=== PATIENT | female | born 1995 | race Caucasian/White ===

== ENCOUNTER 2025-04-20 12:16 | Emergency (ER) | payer OTHER, SELFPAY ==
--- NOTE | ~2025-04-20 | CT_ITS ---
CLINICAL HISTORY: STRINGER, no prior severe HAs, pls eval for aneurysm CT angiography head with contrast. 3D Postprocessing. Comparison: CT/SR - CT HEAD WITHOUT IV CONTRAST - 04/20/25 14:25 EDT Findings: Intracranial arteries are patent. No aneurysm, dissection, hemodynamically significant stenoses, or occlusion. No abnormal intracranial enhancement. No intra-axial mass, midline shift, hydrocephalus, or acute hemorrhage. No skull fracture. IMPRESSION: Patent head CTA. no evidence of intracranial aneurysm. This document has been electronically signed by: Kashmir Becker MD on 04/20/2025 21:08:05
--- NOTE | ~2025-04-20 | CT_ITS ---
EXAMINATION: CT HEAD WITHOUT CONTRAST CLINICAL INFORMATION: Atypical migraine COMPARISON: None available. TECHNIQUE: Contiguous axial imaging was performed from the skull base to vertex without intravenous administration of contrast. This CT examination was performed using dose optimization techniques as appropriate, variously including the following: *Automated exposure control *Adjustment of mA and/or kV according to patient size (this includes techniques or standardized protocols for targeted exams where dose is matched to indication/reason for exam; i.e. extremities or head) *Use of iterative reconstruction technique DLP: 716 mGY*cm FINDINGS: There is no acute ischemic change. There is no intracranial hemorrhage. There is no mass-effect or midline shift. Basal cisterns and ventricles are within normal limits for age/cerebral volume. Orbits are symmetrical and unremarkable. Paranasal sinuses and mastoid air cells are pneumatized. There are no bony abnormalities. There is mild lobular thickening of the frontal bone. CT/CT head/brain wo IV con IMPRESSION: No acute intracranial abnormality. Electronically signed by: Gerber Morse MD 04/20/2025 02:54 PM EDT
[2025-04-20 12:20] VITALS: BP 125/75; PULSE 114; RESP 18; TEMP 36.1; O2SAT 98; BMI 25.0
--- NOTE | 2025-04-20 12:23 | ED_ITS ---
HPI - Headache General Chief Complaint: Headache Stated Complaint: Vomiting Time Seen by Provider: 04/20/25 18:35 History of Present Illness ED Provider: Cali WYLIE Narrative: The patient is a 29-year-old female who has a history of what she calls migraine headaches. She says that these are headaches that she usually experiences behind her right eye and for which she takes sumatriptan. She says that this morning she woke up at around 05:30 and very soon after she woke up she developed a headache that was different from her typical headaches. It was a generalized headache and was associated with nausea. The headache became very severe after about half an hour from onset. She had associated nausea and vomited multiple times and ultimately her father drove her to the emergency room. She believes that the headache started at around 06:00 AM. No fever, sweats, chills. No neck stiffness. She says that her vision looked ?shaky. This was a generalized phenomenon, not a localized visual phenomenon. At 1 point she felt that her arms were stiff and numb. While waiting to be seen her symptoms have subsided somewhat. At this point her headache as a 4 to 5/10. It was much more severe this morning. Related Data Allergies Allergy/AdvReac Type Severity Reaction Status Date / Time No Known Allergies Allergy Verified 04/20/25 12:21 Review of Systems 2 Review of Systems: Yes all other systems are reviewed and are negative [facility] Social History Social History Smoked in Last 30 Days: No Use of substances other than those prescribed or required for medical reasons: No Advance Directives: No Advance Directives Information Provided: Yes Do you have a plan to hurt others: No Plan Physical Exam 2 Vital Signs: Vital Signs: Last Vital Signs Temp 98.0 F 04/20/25 22:19 Pulse 94 04/20/25 22:19 Resp 20 04/20/25 22:19 BP 103/67 04/20/25 22:19 Pulse Ox 98 04/20/25 22:19 O2 Del Method Room Air 04/20/25 22:19 BMI result Body Mass Index 25.0 Const: Other: The patient looks as though she is an ordinarily healthy 29-year-old. She is awake and alert. She does not look obviously ill or unwell. Orientation/consciousness: patient oriented x3 HEENT: Other: The face is symmetrical. ?Mucous membranes moist. Eyes: Other: The patient has a large pupils bilaterally. Pupils are reactive to light. Pupils are equal and responses are equal. Extraocular movements are intact. Funduscopic exam is unremarkable. Neck: Other: The patient has an entirely supple neck. Neck: Yes no meningeal signs Resp: Effort & Inspection: normal respiratory effort Auscultation: clear to auscultation bilaterally Cardio: Rate: regular rate Rhythm: regular rhythm Heart sounds: S1 normal heart sound present and S2 normal heart sound present GI: Other: Abdomen is soft and nontender Skin: Other: Skin is dry and unremarkable Neuro: General: patient oriented x3, gait normal, tone normal, moves all extremities, no meningeal signs, no focal motor deficits and CN's II-XI intact bilaterally Extrem: Other: No peripheral edema Course Course Course Narrative: This is a Rapid Medical Examination (RME) performed by Jada Burdick PA-C in triage. Full HPI, ROS, assessment and treatment plan per primary provider in the Main ED. Hx: 29 yo F hx of migraines here for evaluation of diffuse headache on waking following by nausea and multiple episodes of vomiting. Her migraines are typically located behind her right eye however this 1 was diffuse. She did take a sumatriptan which helped the migraine however she cannot stop vomiting. No vision changes. No head strikes. no known sick contacts Plan: labs, CT Medications Administered Discontinued Medications Generic Name Dose Route Start Last Admin Trade Name Freq PRN Reason Stop Dose Admin Diphenhydramine HCl 25 mg 04/20/25 18:54 04/20/25 19:07 Diphenhydramine Hcl 50 Mg/Ml Vial IVPUSH 04/20/25 18:55 25 mg ONCE ONE Administration Sodium Chloride 1,000 mls @ 999 mls/hr 04/20/25 19:00 04/20/25 20:07 Ns IV 04/20/25 20:00 Infused .Q1H1M ESHA Infusion Iohexol 100 ml 04/20/25 19:46 04/20/25 19:46 Iohexol 350 Mg/Ml 100 Ml Infus..Btl IV 04/20/25 19:47 70 ml ONCE ONE Administration Metoclopramide HCl 10 mg 04/20/25 18:54 04/20/25 19:09 Metoclopramide Hcl 10 Mg/2 Ml Vial IVPUSH 04/20/25 18:55 10 mg ONCE ONE Administration Ondansetron HCl 4 mg 04/20/25 12:23 04/20/25 12:25 Ondansetron Odt 4 Mg Tab.Nikki PAEZ 04/20/25 12:24 4 mg ONCE ONE Administration Medical Decision Making Medical Decision Making [facility] Narrative: The patient is a 29-year-old female who presents with the acute headache that is different than her usual headache syndrome. She developed a headache this morning at around 06:00 that was more severe than her usual headaches and of a different character and was associated with nausea and multiple episodes of vomiting. By the time I saw the patient her symptoms were subsiding. She has a supple neck. A noncontrast CT scan of the brain has been ordered at triage. This was done at about 14 30, approximately 8-1/2 hours after the onset of the headache. The noncontrast head CT was negative. I explained to the patient that on the basis of her negative head CT, her supple neck, the lack of hypertension, in the fact that her symptoms were improving fairly rapidly spontaneously that my suspicion for a subarachnoid hemorrhage was low but that since the noncontrast head CT has been done after 6 hours from the onset of the headache that I could not definitively conclude that she did not have a sentinel bleed. Clinically I do not have any suspicion for meningitis. I explained to the patient that in order to be certain that today's headache might not represent a sentinel bleed of an intracranial aneurysm that we would either need to do a spinal tap or an angiogram of the brain. I also explained that my suspicion was low and we could potentially simply treat her without doing additional testing. The patient was interested in being more definitive and wished to proceed with an angiogram. Therefore the patient had an angiogram of the brain. She was also treated with IV metoclopramide and diphenhydramine and IV fluids. Her residual headache resolved with this treatment. The angiogram shows no sign of aneurysm. The patient was reassured. This may be some different form of migraine, different from her usual migraines. Since she looks quite well and was feeling significantly better and has an essentially negative workup she will be discharged to follow up with her PCP to discuss this further. Lab Data 04/20/25 13:14 04/20/25 13:14 Labs: Lab Results 04/20/25 04/20/25 Range/Units 13:14 17:52 WBC 11.3 H (4.8-10.8) X10*3/uL RBC 4.56 (4.20-5.50) X10*6/uL Hgb 14.0 (12.0-16.0) g/dl Hct 40.8 (37.0-47.0) % MCV 89.5 (80.0-98.0) fL MCH 30.7 (27.0-33.0) pg MCHC 34.3 (31.0-35.0) g/dl RDW 11.9 (11.0-16.0) % Plt Count 254 (160-400) X10*3/uL MPV 9.9 (9.4-12.3) fL Immature Gran % (Auto) 0.4 (0.0-0.4) % Neut % (Auto) 87.2 H (45-73) % Lymph % (Auto) 8.6 L (20-40) % [place] % (Auto) 3.5 (2-11) % Eos % (Auto) 0.0 (0-4) % Baso % (Auto) 0.3 (0-2) % Lymph # (Auto) 1.0 L (1.2-4.9) X10*3/uL [place] # (Auto) 0.4 (0.1-1.2) X10*3/uL Eos # (Auto) 0.0 (0.0-0.4) X10*3/uL Baso # (Auto) 0.0 (0.0-0.2) X10*3/uL Abs Immat Gran (auto) 0.05 H (0.00-0.03) X10*3/uL Absolute Neuts (auto) 9.9 H (2.0-8.3) x10*3/uL Absolute Nucleated RBC 0.000 (0.0-0.012) X10*3/uL Nucleated RBC % (auto) 0.0 (0.0-0.2) /100WBC Sodium 136 (135-145) mmol/L Potassium 4.8 (3.3-5.1) mmol/L Chloride 104 (96-108) mmol/L Carbon Dioxide 24 (22-29) mmol/L Anion Gap 13 (12-20) BUN 9 (9-16) mg/dL Creatinine 0.69 (0.5-1.4) mg/dL Estim Creat Clear Calc 113.6 Estimated GFR > 60 Random Glucose 109 (60-115) mg/dL Calcium 9.5 (8.4-10.2) mg/dL Magnesium 2.0 (1.6-2.6) mg/dL Total Bilirubin 0.4 (0.0-1.0) mg/dL AST 39 H (5-31) U/L ALT 23 (0-31) U/L Alkaline Phosphatase 60 (39-117) U/L Total Protein 7.6 (6.5-8.0) g/dL Albumin 4.7 (3.5-5.0) g/dL Lipase 12 (8-78) U/L Beta HCG, Quant < 2 mIU/mL Urine Color Yellow Urine Appearance Clear Urine pH 6.5 (5.0-9.0) Ur Specific [place] >= 1.030 H (1.005-1.025) Urine Protein Trace (Neg-Trace) mg/dL Urine Glucose (UA) Negative (Negative) mg/dL Urine Ketones >=160 (Negative) mg/dL Urine Blood Negative (Negative) Urine Nitrite Negative (Negative) Ur Leukocyte Esterase Negative (Negative) Influenza Type A (PCR) NEGATIVE (Negative) Influenza Type B (PCR) NEGATIVE (Negative) RSV RNA Qual (PCR) NEGATIVE (Negative) SARS-CoV-2 RNA (RT-PCR) NEGATIVE (Negative) Discharge Plan Discharge Clinical Impression: Headache Patient Disposition: Home, Self-Care Instructions: Acute Headache (ED) Additional Instructions: Your testing in the emergency room today is reassuring. Most importantly there was no evidence of an aneurysm as the source of your headache. It is possible that your headache today was an unusual migraine. Please plan on contacting your regular doctor tomorrow morning for a follow up appointment to discuss this episode further. I have sent a prescription for a medication for nausea which you may use if you have ongoing nausea. You may use pgtn-cri-[id number] ibuprofen and/or acetaminophen (Tylenol) as needed for any residual headache. Return to the emergency room if significantly worse. Referrals: Miryam Robins MD [Primary Care Provider, Endocrinology] Stand Alone Forms: Work/School Release Interventions: ED Discharge Assessment Last Done: 04/20/25 22:19 Discharge Date/Time: 04/20/25 22:20 Print Language: Citizen Of [place]
[2025-04-20 13:22] LABS: MANUAL DIFF FLAG NO
[2025-04-20 13:25] LABS: Hematocrit 40.8 % (37.0-47.0); Hemoglobin 14.0 g/dl (12.0-16.0); Imm Gran Abs Auto 0.05 X10*3/uL (0.00-0.03); Imm Gran Pct Auto 0.4 % (0.0-0.4); Lymphocytes Absolute Auto 1.0 X10*3/uL (1.2-4.9); Mean Corpuscular HGB Conc 34.3 g/dl (31.0-35.0); Mean Corpuscular Hemoglobin 30.7 pg (27.0-33.0); Mean Corpuscular Volume 89.5 fL (80.0-98.0); NRBC Abs Auto 0.000 X10*3/uL (0.0-0.012); NRBC Pct Auto 0.0 /100WBC (0.0-0.2); Platelet Count 254 X10*3/uL (160-400); Red Blood Count 4.56 X10*6/uL (4.20-5.50); White Blood Count 11.3 X10*3/uL (4.8-10.8)
[2025-04-20 13:38] LABS: Alanine Aminotransferase 23 U/L (0-31); Albumin Level 4.7 g/dL (3.5-5.0); Alkaline Phosphatase 60 U/L (39-117); Anion Gap 13 (12-20); Aspartate Amino Transferase 39 U/L (5-31); Blood Urea Nitrogen 9 mg/dL (9-16); Calcium 9.5 mg/dL (8.4-10.2); Carbon Dioxide 24 mmol/L (22-29); Chloride 104 mmol/L (96-108); Creatinine Clr Calc Pharmacy 113.6; Estimated Glomerular Filt Rate > 60; Lipase 12 U/L (8-78); Magnesium 2.0 mg/dL (1.6-2.6); Potassium 4.8 mmol/L (3.3-5.1); Sodium 136 mmol/L (135-145); Total Protein 7.6 g/dL (6.5-8.0)
[2025-04-20 14:05] LABS: Resp Syncy Virus RNA Qual PCR NEGATIVE (Negative); SARS COV2 PCR INHOUSE NEGATIVE (Negative)
[2025-04-20 17:47] VITALS: BP 129/67; PULSE 92; RESP 18; TEMP 35.8; O2SAT 99
[2025-04-20 18:03] LABS: Appearance Urine Clear; Glucose Urine UA Negative (Negative); PH 6.5 (5.0-9.0); Specific Gravity - Urine >= 1.030 (1.005-1.025)
--- OUTSIDE RECORDS SUMMARY | 2025-04-20 19:01 | XMS_ITS | Continuity of Care Document ---
Author Organization [facility] [address] [place] [address] Phone [phone] Care Team Providers Care Loom Operator Apprentice Name Role Phone Miryam Robins M.D. Care Team Informati on Executive Secretary Social Welfare [phone] Problems Active Problems Provider Date Polycystic ovary syndrome Miryam Robins M.D. Onset: 03/20/2023 Acne Miryam Robins M.D. Ons et: 03/20/2023 Migraine Miryam Robins M.D. Ons et: 03/20/2023 Social History Type Date Description Comments Sex Female Sex Unknown Lives With Mother And Father Occupation filing or registry clerk Work Status Full-Time Employment ETOH Use Rarely consumes alcohol Tobacco Use Start: Unknown Patient has never smoked Allergies and adverse reactions Description No Known Drug Allergies Medications Active Medications SIG Qnty Indications Order ing Provider Date [id number] Tablets take 1 tablet by mouth twice a day 180taradha Robins M.D. 11/16/2024 Sumatriptan [id number] Tablets Take 1 Tablet By Mouth as Needed For Migraine. May Repeat In 2 Hours Max Dose 200 MG In 24 Hurs 10taradha Robins M.D. 03/20/2023 [id number] Tablets Take 3 Tablets By Mouth Twice Daily as Directed 540taradha Robins M.D. 12/03/2022 Drospirenone-Ethinyl Estradiol3-0.02mg Tablets Carlos Bernabe M.D. Multivitamin AdultsTablets 1 by mouth every day Miryam Robins M.D. Vital Signs Date Vital Result Comment 11/16/2024 3:13pm BP Systolic 120 mmHg BP Diastolic 78 mmHg Heart Rate 80 /min Height 66 inches 5'6 Weight 158.25 lb BMI (Body Mass Index) 25.5 kg/m2 Results Test Acquired Date Facility Test Result H/L Range Note Comp. Metabolic Panel (14) 07/16/2024 [facility] Glucose 87 mg/dL 70-99 BUN 12 mg/dL 6-20 Creatinine 0.77 mg/dL 0.57-1.0 0 eGFR 108 mL/min/1. 73 >59 BUN/Creatinine Ratio 16 9-23 Sodium 139 mmol/L 134-144 Potassium 4.4 mmol/L 3.5-5.2 Carbon Dioxide, Total 20 mmol/L 20-29 Protein, Total 7.4 g/dL 6.0-8.5 Albumin 4.7 g/dL 4.0-5.0 Globulin, Total 2.7 g/dL 1.5-4.5 Bilirubin, Total 0.3 mg/dL 0.0-1 .2 Alkaline Phosphatase 76 IU/L 44-121 Ast (Sgot) 18 IU/L 0-40 Alt (SGPT) 22 IU/L 0-32 Chloride 99 mmol/L 96-106 Calcium 10.2 mg/dL 8.7-10.2 Lipid Panel 07/16/2024 [facility] Cholesterol, Total 230 mg/dL High 100-199 Triglycerides 95 mg/dL 0-149 HDL Cholesterol 79 mg/dL >39 VLDL Cholestero l Delfin 16 mg/dL 5-40 LDL Chol Calc (Nih) 135 mg/dL High 0-99 LDL Calc Comment: TNP Comp. Metabolic Panel (14) 03/13/2024 [facility] Glucose 89 mg/dL 70-99 BUN 8 mg/dL 6-20 Creatinine 0.82 mg/dL 0.57-1.0 0 eGFR 100 mL/min/1. 73 >59 BUN/Creatinine Ratio 10 9-23 Sodium 138 mmol/L 134-144 Potassium 3.9 mmol/L 3.5-5.2 Chloride 99 mmol/L 96-106 Carbon Dioxide, Total 19 mmol/L Low 20-29 Calcium 9.8 mg/dL 8.7-10.2 Protein, Total 7.5 g/dL 6.0-8.5 Albumin 4.8 g/dL 4.0-5.0 Globulin, Total 2.7 g/dL 1.5-4.5 Bilirubin, Total <0.2 mg/dL 0.0-1.2 Alkaline Phosphatase 66 IU/L 44-121 Ast (Sgot) 17 IU/L 0-40 Alt (SGPT) 11 IU/L 0-32 CBC With Differential/Plat elet 03/13/2024 [facility] WBC 8.8 x10E3/uL 3.4-10.8 RBC 4.67 x10E6/uL 3.77-5.2 8 Hemoglobin 14.2 g/dL 11.1-15. 9 Hematocrit 43.2 % 34.0-46. 6 MCV 93 fL 79-97 MCH 30.4 pg 26.6-33. 0 MCHC 32.9 g/dL 31.5-35. 7 RDW 12.0 % 11.7-15. 4 Platelets 267 x10E3/uL 150-450 Neutrophils 57 % Not Estab. Lymphs 32 % Not Estab. Monocytes 8 % Not Estab. Eos 1 % Not Estab. Basos 1 % Not Estab. Immature Cells TNP Neutrophils (Absolute) 5.2 x10E3/uL 1.4-7.0 Lymphs (Absolute) 2.8 x10E3/uL 0.7-3.1 Monocytes(Absol u te) 0.7 x10E3/uL 0.1-0.9 Eos (Absolute) 0.1 x10E3/uL 0.0-0.4 Baso (Absolute) 0.0 x10E3/uL 0.0-0.2 Immature Granulocytes 1 % Not Estab. Immature Grans (Abs) 0.1 x10E3/uL 0.0-0.1 NRBC TNP Hematology Comments: TNP TSH Rfx on Abnormal to Free T4 03/13/2024 [facility] TSH Rfx on Abnormal to Free T4 1.060 uIU/mL 0.450-4. 500 Comprehensive Metabolic Panl 03/20/2023 [facility] Glucose 90 mg/dL (70-99) BUN 8 mg/dL (6-20) Creatinine 0.8 mg/dL (0.5-1.0 ) Sodium 138 mmol/L (133-145 ) Potassium 4.7 mmol/L (3.6-5.2 ) Chloride 102 mmol/L (98-107) Bicarbonate 24 mmol/L (22-29) Anion Gap 12 (4-17) Albumin 4.8 GM/DL (3.4-4.8 ) Calcium 10.1 mg/dL (8.6-10. 5) Bilirubin,Total <0.2 mg/dL (0-1.2) Total Protein 7.2 GM/DL (6.2-8.2 ) Ag Ratio 2.0 Ast 16 U/L (0-32) Alk Phos 65 U/L (35-104) Alt 13 U/L (0-33) Estimated GFR Creatinine 106 ML/MIN/1. 73M2 1 Hemoglobin A1c 03/20/2023 [facility] Hemoglobin A1c 5.2 % (4.0-5.6 ) 2 Complete Abc With Diff 03/20/2023 [facility] WBC 7.4 K/MM3 (4.0-11. 0) RBC 4.47 M/MM3 (4.20-5. 40) HGB 13.4 GM/DL (11.7-15 .5) HCT 41.0 % (35.7-45 .8) MCV 91.7 FL (80.0-10 0.0) MCH 30.0 pg (27.0-34 .0) MCHC 32.7 g/dL Low (33.0-37 .0) PLT 253 K/MM3 (150-460 ) RDW-SD 39.5 FL (<47.0) MPV 10.7 FL (9.4-12. 4) Automated NRBC 0.0 #/100WBC' S Abs. NRBC 0.0 K/MM3 Neut # 4.3 K/MM3 (1.3-7.0 ) Lymph # 2.4 K/MM3 (0.8-3.1 ) [place]# 0.7 K/MM3 (0.4-0.9 ) Eo # 0.0 K/MM3 (0.0-0.4 ) Baso # 0.0 K/MM3 (0.0-0.1 ) Abs. Imm Gran 0.0 K/MM3 Neut 58.1 % (44-76) Lymph 31.7 % (15-43) Monocyte 8.9 % (4.5-10. 5) Eo 0.4 % (0-6) Baso 0.5 % (0-2) Imm Gran 0.4 % TSH With Reflex To FT4 03/20/2023 [facility] TSH With Reflex To FT4 1.16 uIU/mL (0.4-4.2 ) 1 Creatinine based est imated glomerular filtration (eGFR) in adults is calculated using the National Kidney Foundation recommended 2020 CKD-EPI equation. Estimates GFR from serum creatinine, age and sex. 2 MONITORING: In known diabetic patients, hemoglobin A1c targets should be discussed with health care provider. DIAGNOSTIC USE: The [place] Diabetes Association (ADA) and the World Health Organization (WHO) recommend the use of HbA1c to diagnose diabetes using a threshold of 6.5%. Patients who have an HbA1c between 5.7% and 6.4% are considered at increased risk for developing diabetes in the future. CAUTION: Falsely low HbA1c results may be observed in patients with hemolytic anemia, homozygous forms of abnormal hemoglobin (e.g. SS, CC, SC), , recent blood loss or hemoglobin F greater than 7%. Fructosamine may be used as an alternate test in these cases. REFERENCE: ADA: Standards of Medical Care in Diabetes 2020, The Journal of Clinical and Applied Research and Education Volume 43, Supplement 1 Procedures Date Code Description Status 07/16/2024 85213 Collection Of Venous Blood B y Venipuncture Completed 03/13/2024 75094 Collection Of Venous Blood B y Venipuncture Completed 03/20/2023 56856 Collection Of Venous Blood B y Venipuncture Completed 09/14/2022 NSHOWOFF No Show Office Visit Complet ed Medical Devices Description No Information Available Encounters Type Date Location Provider Dx Diagnosis Office Visit 11/16/2024 3:00p Main Office Miryam Robins M.D. E28.2 Polycystic ovarian syndrome G43.009 Migraine w/o aura, n ot intractable, w/o status migrainosus L70.0 Acne vulgaris E78.00 Pure hypercholestero lemia, unspecified Assessments Date Code Description Provider 11/16/2024 E28.2 Polycystic ovarian syndrome Miryam Robins M.D. 11/16/2024 G43.009 Migraine without aura, not intractable, without status migrainosus Miryam Robins M.D. 11/16/2024 L70.0 Acne vulgaris Miryam Mathis M.D. 11/16/2024 E78.00 Pure hypercholes terolemia, unspecified Miryam Robins M.D. Plan of Treatment 11/16/2024 - Miryam Robins M.D.* E28.2 Polycystic ovarian syndrome * G43.009 Migraine without aura, not intractable, without status migrainosus * L70.0 Acne vulgaris * E78.00 Pure hypercholesterolemia, unspecified * Functional Status Description No Information Available Mental Status Description No Information Available Referrals Description No Information Available
--- OUTSIDE RECORDS SUMMARY | 2025-04-20 19:01 | XMS_ITS | Clinical Summary ---
Author Organization [facility] it Address [address] [place] [address] Care Team Providers Care Spreader Operator Name Role Phone Unavailable Primary Care Provider Unavailabl e Social History Tobacco Use Types Packs/Day Years Used Date Smoking Tobacco: Never Assessed Comments Unknown Sex and Gender Information Value Date Recorded Sex Assigned at Not on file Legal Sex Female 3:55 PM EST Gender Identity Not on file Sexual Orientation Not on file Plan of Treatment Health Maintenance Due Date Last Done Comments DTaP,Tdap,and Td Vaccines (1 - Tdap) 11/10/2015 Hepatitis B Vaccines (1 of 3 - 19+ 3-dose series) 11/10/2015 Cervical Cancer Screening: P ap Smear 2017 COVID-19 Vaccine (1 - 2023-2 5 season) 2024 Depression Screening 09/02/2024 Influenza Vaccine (#1) 2025 HIB Vaccines Aged Out No longer eligi ble based on patient's age to complete this topic HPV Vaccines Aged Out No longer eligi ble based on patient's age to complete this topic Hepatitis A Vaccines Aged Out No long er eligible based on patient's age to complete this topic IPV Vaccines Aged Out No longer eligi ble based on patient's age to complete this topic MMR Vaccines Aged Out No longer eligi ble based on patient's age to complete this topic Meningococcal ACWY Vaccine Aged Out N o longer eligible based on patient's age to complete this topic Meningococcal B Vaccine Aged Out No l onger eligible based on patient's age to complete this topic Pneumococcal Vaccine: Pediat rics (0 to 5 Years) and At-Risk Patients (6 to 49 Years) Aged Out No longer eligible b ased on patient's age to complete this topic RSV Immunization Patients Un gilda 20 months Aged Out No longer eligible b ased on patient's age to complete this topic Varicella Vaccines Aged Out No longer eligible based on patient's age to complete this topic
[2025-04-20] MEDS: iohexoL 350 MG/ML 100 ML INFUS..BTL IV (19:46)
[2025-04-20 20:00] VITALS: BP 107/58; PULSE 100; RESP 20; TEMP 37.1; O2SAT 99
[2025-04-20 22:17] VITALS: BP 103/67; PULSE 94; RESP 20; TEMP 36.7; O2SAT 98
[2025-04-20 22:19] VITALS: BP 103/67; PULSE 94; RESP 20; TEMP 36.7; O2SAT 98
== END 2025-04-20 22:20 | disposition home or self-care (01) ==
PROVIDERS: Physician Assistant Medical; Emergency Provider Emergency Medicine; PCP Internal Medicine Endocrinology, Diabetes & Metabolism
DX: R51.9 Headache, unspecified (principal); R11.0 Nausea
CPT/HCPCS: 36415; 70450; 70496; 80053; 81003; 83690; 83735; 84702; 85025; 87637; 96361; 96374; 96375; 99284; J1200; J2765; Q9967

== ENCOUNTER → 2025-04-20 12:22 | Outpatient (BNV) | payer OTHER, SELFPAY | PROVIDERS: PCP Internal Medicine Endocrinology, Diabetes & Metabolism; Visit Provider Radiology Diagnostic Radiology | DX: G44.53 Primary thunderclap headache (principal); G43.809 Other migraine, not intractable, without status migrainosus | CPT/HCPCS: 70450; 70496 ==